=== PATIENT | male | born 1985 | race Caucasian/White ===

== ENCOUNTER 2024-07-05 18:31 | Emergency (ER) | payer OTHER ==
[~2024-07-05] VITALS: Ht 172.7 cm; Wt 120.4 kg
[~2024-07-05 18:31] MED LIST: HYDROCODON-ACE1 EA10 PO; IBU800 MG PO; IBUPROFEN600 MG PO; TYLENOL EXTRA500 MG PO
[2024-07-05] MEDS ORDERED: ZYRTEC10 M3 PO (20:35)
[2024-07-05] MEDS ORDERED: MELATONIN1 MG PO (20:36)
[2024-07-05] MEDS ORDERED: B-121000 MC2 PO (20:36)
[2024-07-05] MEDS ORDERED: diphenhydrAMINE HCL 50 MG/ML VIAL IV ONE (22:00)
[2024-07-05] MEDS ORDERED: FAMOTIDINE 20 MG/ 2 ML VIAL IV ONE (22:00)
[2024-07-05] MEDS ORDERED: DEXAMETHASONE SOD PHOS 10 MG/ML VIAL IV ONE (22:00)
[2024-07-05 22:14] LABS: BASOPHILS 0.2 % (0-2); HEMATOCRIT 38.2 % (35.0-50.0); LYMPHOCYTES 12.8 % (24-44); MCH 28.4 (27-36); MCHC 34.1 g/dl (30-36); MCV 83.2 fl (81-99); MONOCYTES 7.4 % (0-12); NEUTROPHILS 75.6 % (39-80); PLATELET COUNT 271 K/uL (140-440); RBC 4.59 M/ul (4.3-5.7); RDW 14.8 (10.5-15.0)
[2024-07-05 22:33] LABS: ALBUMIN 3.1 g/dL (3.4-5.0); ALBUMIN/GLOBULIN RATIO 0.78 (1.1-2.4); ANION GAP 14.5 (7-21); BILIRUBIN, TOTAL 0.9 ng/dL (0.2-1.0); BUN/CREATININE RATIO 11.57 (6.0-28.6); CALCIUM 8.7 mg/dL (8.5-10.1); CREATININE, SERUM 1.21 mg/dL (0.70-1.30); POTASSIUM 4.5 mmol/L (3.5-5.1); PROTEIN, TOTAL 7.1 g/dL (6.4-8.2)
[2024-07-05] MEDS ORDERED: METHYLPREDNISOLO4 M1 PO (23:04)
[2024-07-05 23:20] VITALS: BP 108/73
== END 2024-07-05 23:20 | disposition other institution, planned readmission (95) ==
LOC: ED 18:31
PROVIDERS: Internal Medicine
DX: L27.1 Localized skin eruption due to drugs and medicaments taken internally (principal); T36.95XA Adverse effect of unspecified systemic antibiotic, initial encounter; Z88.2 Allergy status to sulfonamides; Z88.1 Allergy status to other antibiotic agents; Z88.0 Allergy status to penicillin; Z88.5 Allergy status to narcotic agent; Z79.899 Other long term (current) drug therapy
CPT/HCPCS: 36415; 80053; 85025; 96374; 96375; 99283-25; J1100; J1200